=== PATIENT | female | born 1985 | race Caucasian/White ===

== ENCOUNTER 2023-09-02 17:25 | Emergency (ER) | payer OTHER ==
[2023-09-02 18:23] VITALS: BP 96/59; PULSE 73; RESP 20; TEMP 98.5; BMI 26.6
[2023-09-02] MEDS ORDERED: SODIUM CHLORIDE 0.9% 500 ML INFUS.BAG IV ONE (18:32)
[2023-09-02] MEDS ORDERED: ACETAMINOPHEN 1000 MG/100 ML BAG IVPB ONE (19:00)
[2023-09-02] MEDS ORDERED: METOCLOPRAMIDE HCL INJECTION 10 MG/2 ML VIAL IVPB ONE (19:00)
[2023-09-02 19:06] LABS: BASO % 0.7 % (0-2.0); EOS % 2.7 % (0-4.5); HEMATOCRIT 37.9 % (32.4-45.2); HEMOGLOBIN 12.6 GM/dL (10.7-15.3); LYMPH % 25.9 % (8-40); MCH 28.3 pg (25.7-33.7); MCHC 33.2 g/dl (32.0-36.0); MEAN CELL VOLUME 85.4 fl (80-96); MEAN PLT VOLUME 8.4 fl (7.5-11.1); MONO % 7.2 % (3.8-10.2); NEUT % 63.5 % (42.8-82.8); PLATELET COUNT 266 10^3/uL (134-434); RBC 4.44 M/mm3 (3.60-5.2); RDW 13.7 % (11.6-15.6)
[2023-09-02 19:13] LABS: INR 1.17 (0.83-1.09); PROTHROMBIN TIME (PATIENT) 13.6 SEC (9.7-13.0)
[2023-09-02 19:16] LABS: ACTIVATED PTT 31.9 SECONDS (25.2-36.5)
[2023-09-02] MEDS ORDERED: METOCLOPRAMIDE HCL INJECTION 10 MG/2 ML VIAL ONE (19:33)
[2023-09-02] MEDS ORDERED: ACETAMINOPHEN INJECTION 100 ML IVPB ONE (19:33)
[2023-09-02 19:40] LABS: POTASSIUM 3.6 mmol/L (3.5-5.1)
[2023-09-02 19:42] LABS: CALCIUM 9.1 mg/dL (8.5-10.1)
[2023-09-02 19:43] LABS: ALBUMIN 3.7 g/dl (3.4-5.0); BLOOD UREA NITROGEN 7.3 mg/dL (7-18)
[2023-09-02 19:46] LABS: CREATININE 0.8 mg/dL (0.55-1.3)
[2023-09-02 19:47] LABS: BILIRUBIN,TOTAL 0.4 mg/dL (0.2-1)
[2023-09-02 19:48] LABS: TOT PROT 7.3 g/dl (6.4-8.2)
== END 2023-09-02 20:25 | disposition home or self-care (01) ==
LOC: JER 17:25
PROC: 3E033NZ Introduction of Analgesics, Hypnotics, Sedatives into Peripheral Vein, Percutaneous Approach (ICD-10-PCS; principal; 2023-09-02)
PROC: 3E033GC Introduction of Other Therapeutic Substance into Peripheral Vein, Percutaneous Approach (ICD-10-PCS; 2023-09-02)
DX: S06.0X9A Concussion with loss of consciousness of unspecified duration, initial encounter (principal); R11.0 Nausea; R42 Dizziness and giddiness; H53.8 Other visual disturbances; H93.19 Tinnitus, unspecified ear; W20.8XXA Other cause of strike by thrown, projected or falling object, initial encounter; Y92.000 Kitchen of unspecified non-institutional (private) residence as the place of occurrence of the external cause
CPT/HCPCS: 36415; 70450-TC; 72125-TC; 80053; 85025; 85610; 85730; 86850; 86900; 86901; 99284-25